=== PATIENT | female | born 1970 | race Caucasian/White ===

== ENCOUNTER 2017-09-30 15:14 | Emergency (ER) | payer BC ==
[~2017-09-30] VITALS: Wt 75.0 kg
[2017-09-30 15:20] VITALS: BP 166/105; PULSE 83; RESP 22; TEMP 98.6
[2017-09-30] MEDS ORDERED: ASPIRIN 81 MG TAB PO STA (15:20)
[2017-09-30] MEDS ORDERED: NITROGLYCERIN 2% 1 GM OINT PKT TD STA (15:20)
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
--- NOTE | 2017-09-30 15:52 | RADRPT ---
PROCEDURE: Chest x-ray CLINICAL INDICATION: Chest pain TECHNIQUE: Chest single view COMPARISON: None FINDINGS: The heart is normal in size. The pulmonary vessels are normal in caliber. The lungs are clear. Th e costophrenic angles are sharp. The visualized bony thorax is unremarkable. IMPRESSION: No acute cardiopulmonary disease. RPTAT: HH .Waylon Edmondson MD, Date Time Electronically viewed and signed by .Waylon Edmondson MD, MD on 09/30/2017 15:51 .W/
[2017-09-30] MEDS ORDERED: KETOROLAC 15 MG INJ ONE (17:08)
[2017-10-01] MEDS ORDERED: SERT50TA6 PO (00:41)
[2017-10-01] MEDS ORDERED: ATOR40TA68 PO (00:41)
[2017-10-01] MEDS ORDERED: LEVO25TA53 PO (00:41)
== END 2017-09-30 20:15 | disposition home or self-care (01) ==
LOC: E/R 15:14
DX: R07.9 Chest pain, unspecified (principal); F41.9 Anxiety disorder, unspecified; I10 Essential (primary) hypertension; F17.210 Nicotine dependence, cigarettes, uncomplicated; R40.2142 Coma scale, eyes open, spontaneous, at arrival to emergency department; R40.2252 Coma scale, best verbal response, oriented, at arrival to emergency department; R40.2362 Coma scale, best motor response, obeys commands, at arrival to emergency department
CPT/HCPCS: 71010; 80048; 84484; 85025; 93005; J1885; Z7502; Z7610